=== PATIENT | male | born 1980 | race Caucasian/White ===

== ENCOUNTER 2017-03-28 21:14 | Emergency (ER) | payer OTHER ==
[~2017-03-28 21:14] MED LIST: CELEXA20 MG PO; CLARITIN10 MG PO; SEROQUEL25 MG PO; TYLENOL 500 MG500 MG PO
== END 2017-03-29 02:55 | disposition home or self-care (01) ==
LOC: ER1 21:14
DX: N45.1 Epididymitis (principal); N43.3 Hydrocele, unspecified; F17.210 Nicotine dependence, cigarettes, uncomplicated
CPT/HCPCS: 76870; 81001; 87086; 96372; 99284; J0696